=== PATIENT | female | born 1970 | race Caucasian/White ===

== ENCOUNTER 2016-11-30 17:45 | Emergency (ER) | payer OTHER ==
[~2016-11-30] VITALS: Ht 160 cm; Wt 71.2 kg
--- NOTE | ~2016-11-30 | CR63 ---
[facility] A Service of [facility] & [facility] RADIOLOGY TEXT RESULTS PATIENT: CHECO BUI LOCATION: CFTX : 72 UNIT #: [id number] AGE: [address]: Radha Elizabeth SEX: F ORDER DR: [id number] [facility] [address] [place], [place] [address] [id number] E MR#: [id number] Acc #: [id number] NAME: CHECO BUI : 1970 SEX: F STUDY DATE/TIME: 11/30/2016 18:20 UNIT: [facility] ROOM: STUDY DESCRIPTION: CR Chest 2 View Attending Physician: Radha Elizabeth P.A.-C. Ordering Physician: Radha Elizabeth P.A.-C. Primary Care Physician: Manohar Herbert M.D. MEDICAL IMAGING REPORT This report is preliminary unless electronic signature is present EXAM Chest 2 views dated 11/30/2016. COMPARISON Frontal view of the chest from acute abdominal series dated 01/21/2014. HISTORY Shortness of air, cough and congestion and fever for 10 days. FINDINGS Chest 2 views were obtained. PA and lateral examination of the chest upright shows a good expansion of the parenchyma with a normal distribution of the pulmonary vascularity. There is no indication of congestion, effusion, infiltrate, tumor, or nodular density. The pleural reflections and diaphragmatic contours are normal. The cardiac silhouette and mediastinal anatomy is within normal limits. IMPRESSION Normal chest. Dictated by... Roger Rosado M.D. THIS IS AN ELECTRONICALLY VERIFIED REPORT Roger Rosado M.D. at 12/01/2016 3:28 PM CPR/pc TD: 12/01/2016 06:56 JOB #: [id number] MEDICAL IMAGING REPORT Page 1 of 1 COPY
[~2016-11-30 17:45] MED LIST: CENTRAL VITE PO; FOLIC ACID1 MG PO; IRON325 ( 652 PO; PRILOSEC20 MG PO; ROXICODONE5 MG PO; SUBOXONE 8 MG-1 EACH SL; THIAMINE HCL100 M1 PO
== END 2016-11-30 19:24 | disposition home or self-care (01) ==
LOC: CED 17:45 → CFTX 17:45
DX: J20.9 Acute bronchitis, unspecified (principal); Z90.49 Acquired absence of other specified parts of digestive tract; Z86.718 Personal history of other venous thrombosis and embolism; F17.210 Nicotine dependence, cigarettes, uncomplicated; Z98.890 Other specified postprocedural states
CPT/HCPCS: 71020; 99283